=== PATIENT | female | born 1965 | race Caucasian/White ===

== ENCOUNTER 2017-04-20 11:49 | Emergency (ER) | payer SELFPAY ==
[~2017-04-20] VITALS: Ht 157.5 cm; Wt 83.5 kg
[2017-04-20] MEDS ORDERED: ACETAMINOPHEN WITH CODEINE 300/30MG TABLET PO ONE (13:45)
[2017-04-20] MEDS ORDERED: KETOROLAC 60MG/2ML VIAL IM ONE (13:45)
[2017-04-20 14:52] VITALS: BP 133/77
== END 2017-04-20 14:54 | disposition home or self-care (01) ==
LOC: ER 12:38
DX: M54.2 Cervicalgia (principal); R20.0 Anesthesia of skin; J45.909 Unspecified asthma, uncomplicated
CPT/HCPCS: 72125; 96372; 99284; J1885